=== PATIENT | female | born 1995 | race Caucasian/White ===

== ENCOUNTER 2021-11-27 22:13 | Inpatient (IN) ==
[2021-11-27] MEDS ORDERED: Metoclopramide 10 MG/2 ML VIAL IVP PRN (22:18)
[2021-11-27] MEDS ORDERED: *HR* Nalbuphine 10 MG/ML AMPUL IV PRN (22:18)
[2021-11-27] MEDS ORDERED: Famotidine 20 MG/2 ML VIAL IVP PRN (22:18)
[2021-11-27] MEDS ORDERED: Naloxone 0.4 MG/ML INJ IVP PRN (22:18)
[2021-11-27] MEDS ORDERED: Ondansetron 4 MG/2 ML VIAL IVP PRN (22:18)
[2021-11-27] MEDS ORDERED: Ringers Solution, Lactated 1,000 ML IVC SCH (22:30)
[2021-11-27 22:47] LABS: Basophils % 0.4 %; Eosinophils % 0.5 %; Hematocrit 36.1 % (35.3-44.9); Hemoglobin 11.5 g/dL (11.5-15.4); Immature Granulocytes % 0.5 % (0-4); Lymphocytes # 1.3 K/mcL (0.6-4.6); Lymphocytes % 15.2 %; Mean Corpuscular HGB Conc 31.9 g/dL (31.6-35.5); Mean Corpuscular Hemoglobin 27.8 pg (28.0-33.3); Mean Corpuscular Volume 87.4 fL (83.0-100.0); Mean Platelet Volume 12.9 fL (9.4-12.4); Monocytes # 0.5 K/mcL (0.0-1.3); Monocytes % 5.4 %; Neutrophils # 6.7 K/mcL (1.6-8.9); Platelet Count 176 K/mcL (140-400); Red Blood Count 4.13 M/mcL (3.82-4.97); Red Cell Distribution Width 12.7 % (11.5-14.5); White Blood Count 8.6 K/mcL (4.3-11.1)
[2021-11-27 22:58] LABS: Amphetamine Screen,Urine Negative ng/mL (Cutoff=1000); Barbiturate Screen,Urine Negative ng/mL (Cutoff=200); Benzodiazepines Screen,Urine Negative ng/mL (Cutoff=200); Cannabinoid Screen,Urine Negative ng/mL (Cutoff = 50); Cocaine Screen,Urine Negative ng/mL (Cutoff= 300); Opiate Screen,Urine Negative ng/mL (Cutoff=300); Phencyclidine Screen,Urine Negative ng/mL (Cutoff=25)
[2021-11-27] MEDS ORDERED: Epidural Premix (fent/bupiv) 110 ML EP SCH (23:00)
[2021-11-27] MEDS ORDERED: EPHEDrine 50 MG/ML VIAL IVP PRN (23:00)
[2021-11-27] MEDS ORDERED: Epidural Premix (fent/bupiv) 110 ML EP ONE (23:06)
[2021-11-28] MEDS ORDERED: Oxytocin 30 UNIT/503 ML BAG IVC SCH ×2 (00:30→16:50)
[2021-11-28] MEDS ORDERED: Ropivacaine/PF 0.2% 20 ML VIAL ONE (11:17)
[2021-11-28] MEDS ORDERED: Ibuprofen 600 MG TABLET PO ONE (14:40)
[2021-11-28] MEDS ORDERED: Ondansetron ODT 4 MG TAB.RAPDIS SL PRN (16:50)
[2021-11-28] MEDS ORDERED: Lanolin 7 G OINT...G. TP PRN (16:50)
[2021-11-28] MEDS: *HR* OxyCODONE Immed Rel 5 MG TABLET PO PRN (18:02)
[2021-11-28] MEDS: Benzocaine/Menthol 56 GM AEROSOL SPRAY TP PRN (18:03)
[2021-11-28 19:01] VITALS: O2SAT 97
[2021-11-28] MEDS: Acetaminophen 325 MG TABLET PO SCH (21:12)
[2021-11-28] MEDS: Ibuprofen 600 MG TABLET PO SCH (21:12)
[2021-11-29 05:17] VITALS: PULSE 68
[2021-11-29] MEDS: Acetaminophen 325 MG TABLET PO SCH ×3 (05:34→11:59)
[2021-11-29] MEDS: *HR* OxyCODONE Immed Rel 5 MG TABLET PO PRN ×2 (05:34→10:21)
[2021-11-29] MEDS: Benzocaine/Menthol 56 GM AEROSOL SPRAY TP PRN (05:35)
[2021-11-29] MEDS: Ibuprofen 600 MG TABLET PO SCH ×3 (05:37→11:59)
[2021-11-29 07:11] VITALS: BP 100/62; TEMP 98
[2021-11-29] MEDS ORDERED: Prenatal Vit/FA 1 EACH TABLET PO SCH (09:00)
== END 2021-11-29 15:20 | disposition home or self-care (01) | DRG 807 ==
LOC: 1NENULAB 22:13 → 1NENUOBS 11-28 16:50
PROVIDERS: ADMIT Advanced Practice Midwife; ATTEND Advanced Practice Midwife